=== PATIENT | male | born 1965 | race Two or more races ===

== ENCOUNTER → 2019-08-14 | Emergency (ER) | payer MEDICAID, OTHER ==
[~2019-08-14] VITALS: Ht 175.3 cm; Wt 68.0 kg
[~2019-08-14] MED LIST: SODIUM CHLORIDE 0.9% 1,000 ML IV ONE; THIAMINE 100mg/ml INJ (200mg/2ml VIAL) IV ONE
[2019-08-14 03:30] VITALS: BP 100/64
== END | disposition home or self-care (01) ==
LOC: EDBD 02:53 → ER 02:53
DX: R41.82 Altered mental status, unspecified (principal); G92 Toxic encephalopathy; F10.129 Alcohol abuse with intoxication, unspecified; Y90.7 Blood alcohol level of 200-239 mg/100 ml
CPT/HCPCS: 36415; 80320; 96361; 96374; 99283; J3411; J7030